=== PATIENT | female | born 1980 | race Hispanic/Latino ===

== ENCOUNTER 2024-09-13 14:19 | Emergency (ER) | payer BC ==
[~2024-09-13] VITALS: Ht 157.5 cm; Wt 56.7 kg
[2024-09-13 14:56] LABS: BASOPHILS # (AUTO) 0.04 K/uL (0.00-0.20); BASOPHILS % (AUTO) 0.3 % (0.0-5.0); EOSINOPHILS # (AUTO) 0.07 K/uL (0.00-0.70); EOSINOPHILS % (AUTO) 0.5 % (0.0-8.0); HEMATOCRIT 38.4 % (36-48); IMMATURE GRANULOCYTE ABSOLUTE 0.06 K/uL (0-1); LYMPHOCYTES # (AUTO) 2.3 K/uL (1.0-4.8); MEAN CORPUSCULAR HEMOGLOBIN 29.8 pg (27.0-33.0); MEAN CORPUSCULAR HGB CONC 33.6 g/dL (32.0-36.0); MEAN CORPUSCULAR VOLUME 88.7 fL (79-99); MONOCYTES # (AUTO) 0.9 K/uL (0.1-1.0); MONOCYTES % (AUTO) 5.8 % (3.0-13.0); NEUTROPHILS # (AUTO) 11.9 K/uL (1.8-7.7); PLATELET COUNT (AUTO) 336 K/uL (130-400); RED BLOOD CELL COUNT(AUTO) 4.33 MIL/uL (4.00-5.50); RED CELL DISTRIBUTION WIDTH 13.1 % (11.0-15.5); WHITE BLOOD COUNT (AUTO) 15.2 K/uL (4.8-10.8)
[2024-09-13 15:12] LABS: CREATININE 1.1 mg/dL (0.5-1.0); POTASSIUM 3.5 mmol/L (3.5-5.1)
[2024-09-13] MEDS: 0.9%NACL 1000ML 1,000 ML IV ONE (15:17)
[2024-09-13] MEDS: ondanSETRON 4MG INJ IVP ONE (15:18)
[2024-09-13] MEDS: CEFTRIAXONE 2GM VIAL IVPB ONE (15:18)
[2024-09-13] MEDS: acetaMINOPHEN 500 MG TABLET PO ONE (15:19)
[2024-09-13] MEDS: morPHINE 2 MG SYG IVP ONE (15:19)
[2024-09-13 15:36] LABS: ADD UA MICROSCOPIC YES; APPEARANCE,URINE CLOUDY (CLEAR); BILIRUBIN,URINE NEGATIVE (NEGATIVE); COLOR,URINE LIGHT-YELLOW (YELLOW); GLUCOSE, URINE (UA) NEGATIVE (NEGATIVE); KETONES,URINE 20 mg/dL (NEGATIVE); LEUKOCYTE ESTERASE ,URINE 500 Leu/uL (NEGATIVE); NITRATE,URINE NEGATIVE (NEGATIVE); OCCULT BLOOD,URINE NEGATIVE (NEGATIVE); PH,URINE 6.5 (5.0-8.0); PROTEIN,URINE 30 mg/dL (NEGATIVE); UROBILINOGEN,URINE 0.2 mg/dL (0.2-1.0)
[2024-09-13 15:38] LABS: BACTERIA,URINE RARE /HPF (None Seen); MUCUS,URINE RARE LPF (None Seen); SQUAMOUS EPITHELIAL CELL,UR FEW /HPF (0-2); WBC,URINE 26-50 /HPF (0-1)
[2024-09-13] MEDS ORDERED: IOHEXOL-350 75 ML VIAL IV ONE (15:59)
[2024-09-13 18:49] VITALS: TEMP 98.4
[2024-09-13 18:50] VITALS: BP 109/57; PULSE 90; RESP 20; TEMP 98.4; O2SAT 98
== END 2024-09-13 19:12 | disposition home or self-care (01) ==
LOC: EDH 14:19
DX: L02.31 Cutaneous abscess of buttock (principal); E87.1 Hypo-osmolality and hyponatremia; Z88.1 Allergy status to other antibiotic agents
CPT/HCPCS: 99285; 74177; 96365; 10060; 96366; 96375; 80048; 84703; 85025; 87040; 87086; 83605; 81001; 36415; 76882; J7030; J0696; J2405; Q9967